=== PATIENT | male | born 1980 | race Hispanic/Latino ===

== ENCOUNTER 2024-03-23 20:22 | Emergency (ER) | payer BC ==
[~2024-03-23] VITALS: Ht 175.3 cm; Wt 99.8 kg
[2024-03-23] MEDS: SOLU-MEDROL 125MG VIAL IVP ONE (20:33)
[2024-03-23] MEDS: FAMOTIDINE 20MG VIAL IV ONE (20:33)
[2024-03-23] MEDS: DiphenhydrAMINE HCL 50 MG/ML VIAL IV ONE (20:33)
[2024-03-23] MEDS: 0.9%NACL 1000ML 1,000 ML IV ONE (20:42)
[2024-03-23] MEDS: RACEPINEPHRINE HCL 2.25% 0.5 ML NEB SOLN NEB SCH (20:45)
[2024-03-23 20:46] VITALS: PULSE 71; RESP 16
[2024-03-23] MEDS: IPRATROPIUM/ALBUTEROL SULFATE 3 ML SOLUTION IH ONE (20:46)
[2024-03-23 21:13] VITALS: BP 138/89; PULSE 73; RESP 16; O2SAT 97
[2024-03-23] MEDS ORDERED: DIPH-1242 PO (21:24)
[2024-03-23] MEDS ORDERED: PRED10TA23 PO (21:24)
[2024-03-23] MEDS ORDERED: FAMO-136 PO (21:24)
== END 2024-03-23 21:58 | disposition home or self-care (01) ==
LOC: EDH 20:22
DX: T63.441A Toxic effect of venom of bees, accidental (unintentional), initial encounter (principal); R06.02 Shortness of breath; I10 Essential (primary) hypertension; E78.00 Pure hypercholesterolemia, unspecified; E66.9 Obesity, unspecified; Z68.30 Body mass index [BMI] 30.0-30.9, adult; Z98.890 Other specified postprocedural states; Y92.89 Other specified places as the place of occurrence of the external cause
CPT/HCPCS: 99284; 96374; 96375; 71045; 96361; 93005; 94640; J1200; J3490; J2919; 96365; 96372